=== PATIENT | female | born 1990 | race Caucasian/White ===

== ENCOUNTER 2023-12-02 09:02 | Outpatient (CLI) | payer OTHER, SELFPAY ==
--- NOTE | 2023-12-02 09:15 | US_ITS ---
Patient: COY MANSFIELD Facility:?[facility] Patient ID:?[id number] Site Patient ID:?[id number]. Site :?1990 Study:?US-OB Pelvis DATING AND VIABILITY-12/02/2023 9:36:31 AM Ordering Physician:CARITO REYNA Final Report: INDICATION: First trimester scan, establish dates. COMPARISON: None. TECHNIQUE: Real-time ureña-scale imaging of the pelvis was performed. FINDINGS: Sonographic imaging demonstrates a single living intrauterine gestation. The embryo demonstrates a regular cardiac rate measuring 169 beats per minute. The embryo`s crown-rump length measurement of 3.4 cm corresponds to a gestational age of 10 weeks 2 days with a sonographic due date of 06/27/2024. There is a normal-appearing yolk sac. There are no gross abnormalities noted within the embryo at this early state of development. The gestational sac has a normal appearance. There is no evidence of a perigestational hemorrhage. The amount of fluid within the sac appears appropriate for gestational age. The cervix is closed. The myometrium appears normal. The ovaries are of normal size. Corpus luteal cyst left ovary. There are no suspicious fluid collections noted in the cul-de-sac. IMPRESSION: Normal first trimester OB ultrasound exam. Gestational age calculated at 10 weeks 2 days with a sonographic due date of 06/27/2024. Dictated by Dilshad Sykes MD @ 12/02/2023 10:37:17 AM Signed by:?Dilshad Sykes MD @12/02/2023 10:37:17 AM (Electronic Signature)
== END 2023-12-02 09:03 | disposition home or self-care (01) ==
LOC: US 09:03
PROVIDERS: Visit Provider Advanced Practice Midwife
DX: Z34.91 Encounter for supervision of normal pregnancy, unspecified, first trimester (principal); Z3A.10 10 weeks gestation of pregnancy
CPT/HCPCS: 76801; 82565; 82570; 84156; 84450; 84460; 84550; 86703; 86706; 86803; 86850; 86900; 86901; 87086; 87340; 87491; 87591

== ENCOUNTER 2023-12-02 09:23 | Outpatient (CLI) | payer OTHER, SELFPAY | END 2023-12-02 09:24 | disposition home or self-care (01) | PROVIDERS: Visit Provider Advanced Practice Midwife | DX: Z34.91 Encounter for supervision of normal pregnancy, unspecified, first trimester (principal) | CPT/HCPCS: 82565; 82570; 84156; 84450; 84460; 84550; 86592; 86703; 86704; 86706; 86762; 86787; 86803; 86850; 86900; 86901; 87086; 87340; 87491; 87591 ==

== ENCOUNTER 2023-12-30 10:41 | Outpatient (CLI) | payer OTHER, SELFPAY | END 2023-12-30 10:42 | disposition home or self-care (01) | LOC: NFLDREF 10:48 | PROVIDERS: Visit Provider Advanced Practice Midwife | DX: Z34.91 Encounter for supervision of normal pregnancy, unspecified, first trimester (principal); Z3A.13 13 weeks gestation of pregnancy | CPT/HCPCS: 87086 ==

== ENCOUNTER 2024-01-05 14:21 | Outpatient (RCR) | payer OTHER, SELFPAY | END 2024-03-27 15:16 | disposition home or self-care (01) | PROVIDERS: Visit Provider Advanced Practice Midwife | DX: M62.89 Other specified disorders of muscle (principal); Z33.1 Pregnant state, incidental; R27.8 Other lack of coordination; R39.16 Straining to void; Z51.89 Encounter for other specified aftercare | CPT/HCPCS: 97161; 97535 ==

== ENCOUNTER 2024-02-16 09:10 | Outpatient (CLI) | payer OTHER, SELFPAY ==
--- NOTE | 2024-02-16 09:15 | US_ITS ---
Patient: COY MANSFIELD Facility:?[facility] Patient ID:?[id number] Site Patient ID:?[id number]. Site :?1990 Study:?US-OB Pelvis anatomy-02/16/2024 10:17:22 AM Ordering Physician:Lavonne Black Final Report: HISTORY: anatomic survey. COMPARISON: Early OB ultrasound from 12/02/2023. TECHNIQUE: Ultrasound examination of the is performed with transabdominal technique. FINDINGS: A single intrauterine gestation is seen in variable presentation with regular cardiac activity at 147 beats per minute. The placenta is posterior and is free of the cervical os. The placental grade is 0 and the amniotic fluid volume is normal. Single deepest vertical pocket: Normal at 3.5 cm. Placental cord insertion is eccentric, located 2.4 centimeters from the superior placental margin. The cervix is nondilated and measures 4.7 centimeters, normal length. BPD: 4.6 cm 19 weeks 6 days HC: 17.3 cm 19 weeks 6 days AC: 15.8 cm 20 weeks 6 days FL: 3.4 cm 20 weeks 5 days The estimated age by ultrasound is 20 weeks 5 days, with an estimated date of delivery of 06/30/2024. This correlates well with the clinical age of 20 weeks 5 days and the previous ultrasound. The ultrasound ratios are normal. The estimated weight of 150 grams is at the 43rd percentile based on the clinical dates. The anatomic survey demonstrates normal appearing intracranial structures with a normal septum pellucidum and normal cerebellum. The nuchal thickness is normal at 4 mm, and the lateral ventricle is normal in diameter at 5 mm. The upper lip, 4 chamber heart, left and right ventricular outflow tracts, diaphragm, stomach, cord insertion site, 3-vessel cord, bladder and spine are normal in appearance. There is mild fullness of the renal pelves bilaterally, 4 millimeters on the right and 5 millimeters on the left, within normal limits. IMPRESSION: 1. Single intrauterine gestation in variable presentation with regular cardiac activity. 2. Estimated gestational age is 20 weeks 5 days. 3. There has been appropriate interval growth. 4. The estimated weight of 150 grams is at the 43rd percentile based on the clinical dates. Dictated by Boone Harris MD @ 02/17/2024 10:52:30 AM Signed by:?Boone Harris MD @02/17/2024 10:52:30 AM (Electronic Signature)
== END 2024-02-16 09:11 | disposition home or self-care (01) ==
LOC: US 09:11
PROVIDERS: Visit Provider Advanced Practice Midwife
DX: Z34.92 Encounter for supervision of normal pregnancy, unspecified, second trimester (principal); Z3A.19 19 weeks gestation of pregnancy
CPT/HCPCS: 76805

== ENCOUNTER 2024-04-05 09:18 | Outpatient (CLI) | payer OTHER, SELFPAY | END 2024-04-05 09:19 | disposition home or self-care (01) | LOC: NFLDREF 04-07 18:40 | PROVIDERS: Visit Provider Advanced Practice Midwife | DX: Z34.93 Encounter for supervision of normal pregnancy, unspecified, third trimester (principal) | CPT/HCPCS: 86592 ==

== ENCOUNTER 2024-06-02 09:30 | Outpatient (CLI) | payer OTHER, SELFPAY ==
[2024-06-03 12:10] LABS: Strep B DNA Probe Negative (Negative)
[2024-06-03 12:40] LABS: Strep B Susceptibility Needed? No
== END 2024-06-02 09:31 | disposition home or self-care (01) ==
PROVIDERS: Visit Provider Midwife
DX: Z34.93 Encounter for supervision of normal pregnancy, unspecified, third trimester (principal)
CPT/HCPCS: 87081; 87653

== ENCOUNTER 2024-06-26 14:20 | Inpatient (IN) | payer OTHER, SELFPAY ==
[2024-06-26] VITALS (10 sets, daily range): BP systolic 118–132; BP diastolic 80–83; PULSE 103–112; RESP 15; TEMP 36.4–37.1; BMI 36.0
[2024-06-26 13:57] LABS: Amnisure Rom* POSITIVE
--- NOTE | 2024-06-26 15:50 | P.LDBA_ITS ---
Subjective History of Present Illness Date Seen: 06/26/24 Narrative: Roselyn is being admitted to Labor and Delivery for PROM with moderate amount of clear fluid. She is a 34 year old at 39.3 weeks gestation. Her full history and physical was dictated by Red Dalton CNM on 06/09/24. Please see this for details. Roselyn has been esther minimally since ROM. We discussed options for continuing labor including expectant management or Pitocin augmentation. She strongly desires to avoid any interventions or medications and opts for expectant management. We discussed the risks and benefits of expectant management. Will plan to minimize SVE and she declines at this time. We discuss ed we will plan to reevaluate the need for augmentation in 8-12 hours or sooner as needed. She is agreeable to this plan. Encouraged her to rest if able and discussed ambulation and labor warmup circuit. Specific Issues/Plans Maurizio Unknown gender. 15yo and 2 yo girls at home. H&P completed 06/09/2024 by Aleena JEWELL 1. Hx Preeclampsia last baby baseline Pree labs ordered at [facility] 2. Hx Uterine inversion with first child (15 yrs ago) no issue with last delivery 3. Hx situational Depression with anxiety years ago, no meds did therapy 4. Difficulty urinating, RESOLVED pelvic floor PT referral UA/UC- neg 5.Prominent renal pelvis on anatomy ultrasound, but measurements within normal limits. .4 cm on the right and 0.5 cm on the left OB - Problem Based A/P Additional Plan (1) PROM (premature rupture of membranes): Status: Acute (2) 39 weeks gestation of : Status: Acute Plan ASSESSMENT:? at 39.3 weeks gestation? GBS negative? Uncomplicated . History of preeclampsia and uterine inversion. PROM Blood type:?AB+ ?? PLAN:? 1. Reviewed risks and benefits of augmentation with Pitocin vs expectant management. Pt prefers expectant management. Will reevaluate need for augmentation in 8-12 hours.? 2. Desires water . Consent signed. Hep C negative.? 3. Candidate for analgesia of choice. Planning unmedicated .? 4. Anticipate ? 5. Expectant management at this time.? 6. IV placement criteria not met at this time. Consider placement if patient condition changes. 7. Intermittent auscultation after reactive tracing is obtained. Delivery/Labor/Induction Plan Plan: expectant management OB Result Labs Blood Type: AB (+) positive GBS Status: negative OB Exam Physical Exam Vital signs: Temp Pulse BP 97.9 F 109 H 123/80 06/26/24 15:45 06/26/24 13:47 06/26/24 13:47 Narrative: Psychiatric:? Alert and oriented x3? HEENT:? Normocephalic, atraumatic? Neck:? Supple without adenopathy or thyromegaly? Lungs:? Clear to auscultation bilaterally? Heart:? Regular rate and rhythm, no murmur, rub or gallop? Abdomen:? Soft, nontender, and gravid? Extremities:? No edema or erythema? Detailed Labor and Delivery Exam Patient Gravid: Yes Comments: Declines SVE at this time. Fetus (Single) Amniotic Membrane Status: SROM Amniotic Membrane Fluid Description: Clear Heart Rate Baseline: 125 Monitor Accelerations: Present Monitor Decelerations: None Account Developer Variability: Moderate (6-25)
--- NOTE | 2024-06-26 20:35 | PM.OBPNL ---
Subjective Time Seen by Provider: 20:35 Date Seen: 06/26/24 Narrative: Roselyn has been working on position changes and labor circuits to help start labor. She recently started pumping and her contractions have picked up to every 10-15 per her report but she feels they are getting more painful. Doppler continues to be reassuring with FHR heard in the 140's without decreases. She continues to leak clear fluid. We discussed options for continuing labor. She would like to wait on a SVE and Pitocin augmentation at this time and continue pumping. She is agreeable to evaluating at 0000 and will consider Pitocin at that time if her contraction have not continued to increase in frequency and intensity. We discussed in depth risks and benefits of Pitocin and what augmentation looks like in relation to an unmedicated labor and . Objective Vital Signs: Last Vital Signs Temp 97.6 F 06/26/24 18:20 Pulse 109 H 06/26/24 13:47 BP 123/80 06/26/24 13:47 Contractions Monitor mode: Palpation Contraction Frequency: 10-15 min Contraction pattern: Irregular Assessment Assessment: early labor Heart Rate Baseline: 140 (increases heard by doppler) Monitor Decelerations: None Plan Plan: ASSESSMENT:? at 39.3 weeks gestation? GBS negative? Uncomplicated . History of preeclampsia and uterine inversion. PROM Blood type:?AB+ ?? PLAN:? 1. Reviewed risks and benefits of augmentation with Pitocin vs expectant management. Pt prefers to continue with expectant management at this time. Open to reevaluate need for augmentation around 0000. 2. Desires water . Consent signed. Hep C negative.? 3. Candidate for analgesia of choice. Planning unmedicated .? 4. Anticipate ? 5. Expectant management at this time.? 6. IV placement criteria not met at this time. Consider placement if patient condition changes. 7. Continue with Intermittent auscultation unless conditions change or concerns arise.
[2024-06-27] VITALS (16 sets, daily range): BP systolic 108–136; BP diastolic 58–81; PULSE 79–122; RESP 16; TEMP 36.4–36.8; O2SAT 97
--- NOTE | 2024-06-27 02:39 | W.PM.VAGDE_ITS ---
OB Procedure Vag Delivery Mother Details Mother Details: The patient is a 34 year-old, 3, Para 2, admitted on 06/26/24 at Days gestation. : 3 Para: 3 Weeks Gestation: 39.4 Admission Date: 06/26/24 Additional Details Amniotic Membrane Status: SROM Amniotic Membrane Rupture Date: 06/26/24 Amniotic Membrane Rupture Time: 12:00 Amniotic Membrane Fluid Description: Clear Analgesia/Anesthesia Type: None Waterbirth: Yes Pitcoin: No Intrapartal Events: None Labor Onset: 21:00 Complete: 01:48 (assumed complete with spontaneous pushing) Pushin:48 Heart: heart tones during second stage by doppler were 120-140 with increases heard. Occasional small decreases were heard with pushing to 110 lasting less than 5 seconds with quick return to baseline. Delivery Details Delivery Date: 06/27/24 Delivery Time: 02:18 Route of delivery: Infant Gender: Female Infant Viability: Alive; Heart Rate Present Position at Delivery: OA Delivery Details: Patient was admitted for PROM and progressed normally with position changes and pumping. SROM noted at 1200 with clear fluid. Patient was presumed complete with pushing at 0148. of a viable female at 0218 in left tilt in the tub. Vertex delivered OA. No nuchal cord or shoulder. Body delivered easily and without incident. Infant passed to mothers abdomen with a vigorous cry. Cord was clamped and cut at about 3 minutes due to a large gush of blood in the tub. She was rapi dly escorted to the bed to deliver the placenta. APGARS were 9 at one minute and 9 at five minutes respectively. Mouth was bulb suctioned. Intact placenta with a 3 vessel cord delivered spontaneously at 0228. Fundus firm. Intact perineum was identified and no repaired was required. QBL 50 mL in the drape and EBL 500 mL in the tub. Mother and baby stable; mother plans to breastfeed. weight 8 lb 5oz.? 1 Minute Interval Total Score: 9 5 Minute Interval Total Score: 9 Additional Details Shoulder Dystocia: No Placenta Delivery Time: 02:28 Placental Delivery Description: Spontaneous Procedure Done: Global Blood Loss: 550 Laceration: None Episiotomy Description: None Blood Loss Measurement Type: QBL (50mL QBL in the drape and 500mL EBL in the tub) Bakri Used: No Sponge/Need Count Correct: Yes Cord Vessel Description: 3 Vessels Event Summary Status: Mother and were stable after delivery. Disposition: floor
[2024-06-28 00:54] VITALS: BP 116/71; PULSE 74; RESP 16; TEMP 36.4; O2SAT 95
[2024-06-28 04:37] VITALS: BP 115/75; PULSE 88; RESP 16; TEMP 36.4; O2SAT 97
[2024-06-28 06:46] LABS: Hemoglobin* 12.3 gm/dL (12.0-16.0)
[2024-06-28 08:00] VITALS: BP 118/77; PULSE 72; RESP 16; TEMP 36.4; O2SAT 96
--- NOTE | 2024-06-28 11:12 | PM.OBDSVD1 ---
DS: Providers Provider Date Seen: 06/28/24 Date of admission: 06/26/24 14:20 Primary care physician: Not a Local Provider Admitting Clinician: Jessy Blackburn CNM Attending Physician on discharge: Jenny Weinstein CNM DS: Diagnosis Discharge Diagnosis (1) care and examination immediately after delivery: Status: Acute (2) Lactating mother: Status: Acute Exam Narrative: Exam Narrative: GENERAL APPEARANCE:? normal affect, alert, no distress MOOD:? appropriate CHEST:? clear to auscultation HEART:? regular rate and rhythm ABDOMEN:? soft, non-tender the uterine fundus is at Umbilicus, Midline and is appropriate for the stage of recovery. PERINEUM:? mild edema of the perineum. EXTREMITIES:? normal and no edema Const: Vital Signs, click to edit/add: Vital Signs - 24 hr 06/27/24 12:06 06/27/24 12:06 06/27/24 12:11 Temperature 98.2 F Pulse Rate 90 Pulse Rate [Blood Pressure Cuff] 90 Respiratory Rate 16 Blood Pressure 124/65 Blood Pressure [Ri ght Arm] 124/65 Pulse Oximetry Oxygen Delivery Me thod Room Air 06/27/24 16:12 06/27/24 19:28 06/28/24 00:54 Temperature 98.1 F 97.7 F 97.5 F L Pulse Rate Pulse Rate [Blood Pressure Cuff] 79 86 74 Respiratory Rate 16 16 16 Blood Pressure Blood Pressure [Ri ght Arm] 108/67 112/69 116/71 Pulse Oximetry 97 95 Oxygen Delivery Me thod Room Air Room Air 06/28/24 04:37 06/28/24 08:00 Temperature 97.6 F 97.5 F L Pulse Rate Pulse Rate [Blood Pressure Cuff] 88 72 Respiratory Rate 16 16 Blood Pressure Blood Pressure [Ri ght Arm] 115/75 118/77 Pulse Oximetry 97 96 Oxygen Delivery Me thod Room Air Room Air Documenting provider has reviewed patient's vital signs: yes OB - DS: Summary Hospital Course Hospital Course: Roselyn is a 34 y.o. G 3 P 3 who was admitted to [facility] for spontaneous onset of labor. ?She had a NVD that was uncomplicated. The patient feels well. ?The pain is well controlled with current medications. ?She has no new complaints. ?She is breast feeding and reports things are going well. the patient has done well.? Vitals have been stable.? She has remained afebrile.? Has a good appetite, is tolerating a general diet. ?She is voiding without difficulty.? She is passing gas and has had a bowel movement.? She is ambulating and denies any dizziness.? Has small amount of rubra lochia. She is planning condoms until her has a vasectomy for prevention. Problems: plan: Discharge home with baby. Follow up in 2 weeks and 6 weeks. , may see if needed Hgb 12.3. Peripartum Data delivery method: Vaginal Laceration description: None complications: none Gender: Female Discharge Plan: Home Status at Discharge Functional status at discharge: independent ambulation Overall status at discharge: patient is progressing back to baseline Time Spent with Patient Time attestation: Total time spent providing and/or coordinating discharge services: Time spent: Less than 30 minutes Discharge Plan Discharge Disposition: Home, Self-Care Date of Admission: 06/26/24 14:20 Attending Provider on Discharge: Jenny Weinstein Primary Care Provider: Provider,Not a Local Condition: Stable Anticipated Discharge Date/Time: 06/28/24 12:00 Discharge Medications: New acetaminophen 500 mg Tablet 1,000 mg PO Q6H PRNQty: 0 0RF docusate sodium 100 mg Capsule 100 mg PO DAILY Qty: 90 0RF ibuprofen 600 mg Tablet 600 mg PO Q6H PRNQty: 60 0RF Continued magnesium glycinate 100 mg tablet 100 mg PO QDAY PNV #[id number] 30 mg iron-10 mg iron-1 mg capsule PO cholecalciferol (vitamin D3) 125 mcg (5,000 unit) capsule 125 mcg PO QDAY Culturelle Probiotic 12 billion cell tablet,chewable PO omega-3 fatty acids 1,250 mg capsule 1,250 mg PO QDAY Discontinued aspirin 81 mg tablet,delayed release (DR/EC) 81 mg PO QDAY Discharge Orders: Discharge Order (Routine); Ordered 06/28/24 Ordered By: Jenny Weinstein Patient Education: OB Over the Counter Medication Information, OB Vaginal/Breast Feeding Additional Instructions: Discharge instructions were reviewed with the patient including signs and symptoms of infection and home going medications Nothing vaginally for 6 weeks: no tampons or intercourse Off Work or School for 6 weeks 2-week visit: discuss infant feeding concerns, review control options and screen for anxiety/depression. 6-week visit for an annual exam. consultation services are available to all mothers and babies for the first year after delivery.? To make an appointment, please call [phone]. Activity Level: Activity as Tolerated Discharge Diet: Regular Follow Up Appointments: Provider,Not a Local [Primary Care Provider] - Forms: [employer] Info Instructions
[2024-06-30 00:45] LABS: Rapid Plasma Reagin (RPR) Non Reactive (Non Reactive)
== END 2024-06-28 11:38 | disposition home or self-care (01) | DRG 807 ==
LOC: OB OUT 14:20 → OB 14:20
PROVIDERS: Admitting Provider Advanced Practice Midwife; Visit Provider Advanced Practice Midwife
DX: O42.02 Full-term premature rupture of membranes, onset of labor within 24 hours of rupture (principal); Z37.0 Single live birth; Z3A.39 39 weeks gestation of pregnancy
CPT/HCPCS: 36415; 84112; 85018; 86592

== ENCOUNTER 2024-06-30 09:28 | Outpatient (CLI) | payer OTHER, SELFPAY ==
--- NOTE | 2024-06-30 10:23 | P.LACCB_ITS ---
Consult Note - Mom Date of Visit Date of visit: 06/30/24 Reason for consultation: Assistance Needed and Infant Weight Concern Visit Code: Visit Patient's Information Phone number: [phone] : 3 Para: 3 Allergies No Known Drug Allergies Allergy (Verified 06/26/24 13:55) Mother's Medical History: Medical History (Updated 06/28/24 @ 11:13 by Jenny Weinstein CNM) Difficulty urinating ?R39.198 - Other difficulties with micturition (ICD-10) History of abnormal cervical Pap smear (2017) ?Z87.42 - Personal history of other diseases of the female genital tract (ICD-10) History of pre-eclampsia (2021) ?Z87.59 - Personal history of other complications of , childbirth and the puerperium (ICD-10) Anxiety with depression ?F41.8 - Other specified anxiety disorders (ICD-10) History of uterine inversion (10/04/08) ?Z87.42 - Personal history of other diseases of the female genital tract (ICD-10) Normal spontaneous vaginal delivery ?O80 - Encounter for full-term uncomplicated delivery (ICD-10) Work Plans: Return to work fulltime Oct 2024 Delivery Information Delivery type: Vaginal Gestational Age: 30+4 Gestational Weight For Age: AGA Weight: 3.78 kg Discharge Weight: 3.546 kg Percentage weight loss: 6.2 Baby's Information Baby's Age at Visit: 3 days Baby's Provider or Clinic: [facility] Jaundice: No Past Experience Past Experience: Yes (none with 1st child, 6 mos with 2nd child) Current Frequency of Day Feedings: every 2hours, mom needs to wake baby for feedings Frequency of Night Feedings: every 2 hours Both Breasts: Yes Suck: strong, comfortable Latch: wide, deep Length of Time: about 10 min ea side Goals: 1 year Pumping Pumping: No Supplementing Formula Supplement: Yes (3 times on day of discharge, none since milk came in) Baby Elimination Number of Wet Diapers a Day: 3-4 yesterday Number of BM a Day: 1 BM early this AM, brown in color Breast/Nipple Condition Breast Information: Breasts are symmetrical with rounded lower quadrants, intramammary distance is less than 1.5 inches. No erythema. Nipples are supple, everted prior to feeding. Breast Shape: Round Engorgement: No Maternal Nipple Condition - Left: Common Nipple Maternal Nipple Condition - Right: Common Nipple Sore Nipples: No Interventions for Sore Nipples: Lansinoh/Nipple Cream Baby Assessment Skin: Normal Tongue/frenulum: Normal/elastic Palate: Average Lips: Relaxed and Symmetrical Jaw Alignment: Symmetrical Mucosa: [place], moist Onsite Observation Pre-Feed weight: 3.512 kg Post-Feed weight: 3.556 kg Milk Transferred (mL): 44 (15 min on left, 5 min on right) Position: Cross cradle Suck pattern: Suck burst and normal rest Swallow: Audible, consistent Behavior following feed: Relaxed, sleepy Pre-Nursing Left Nipple: Within Normal Limits Pre-Nursing Right Nipple: Within Normal Limits Post-Nursing Left Nipple: Within Normal Limits Post-Nursing Right Nipple: Within Normal Limits Assessments/Interventions Assessments/Interventions: Babe with improved weight, going well Discussed pumping around 2-3 weeks to build freezer supply in preparation for mom to return to work Discussed adding in bottles around 3-4 weeks, also in preparation for mom to return to work Education provided: Early feeding cues to maximize timing of latching, Supply/d emand nature of milk supply, Need for frequent stimulation/milk removal, Pumping for milk management and Milk collection, storage Feeding Plan: Continue feeding every 2-3 hours, think 2 hours during the day and 3 hours at night if baby sleeps Can go longer at night once baby back to birthweight; also ok to wake baby for feeding if needed for milk removal to keep breasts comfortable Follow-Up Suggested follow up: Appointment as needed Time Spent Time spent with patient (min): 60 (Time spent reviewing EMR and face to face with mom/baby) Meds Home Medications and Allergies Home Medications ?Medication ?Instructions ?Recorded ?Confirmed ?Type L. crispatus, gasseri, jensenii, tab PO 12/02/23 06/23/24 History rhamnosus 12 billion cell chew tablet (Culturelle Probiotic) cholecalciferol (vitamin D3) 125 125 mcg PO QDAY 12/02/23 06/26/24 History mcg (5,000 unit) capsule magnesium glycinate 100 mg (as 100 mg PO QDAY 12/02/23 06/26/24 History glycinate) tablet omega-3 fatty acids 1,250 mg 1,250 mg PO QDAY 12/02/23 06/26/24 History capsule vitamin#30 30 mg iron-10 cap PO 12/02/23 06/23/24 History mg iron-folic acid 1 mg-omg3 capsule Allergies Allergy/AdvReac Type Severity Reaction Status Date / Time No Known Drug Allergies Allergy Verified 06/26/24 13:55
== END 2024-06-30 09:29 | disposition home or self-care (01) ==
LOC: OB LAC 09:29
PROVIDERS: Visit Provider Obstetrics & Gynecology
DX: Z39.1 Encounter for care and examination of lactating mother (principal)
CPT/HCPCS: G0463

== ENCOUNTER 2025-04-05 09:33 | Outpatient (CLI) | payer OTHER, SELFPAY | END 2025-04-05 09:34 | disposition home or self-care (01) | PROVIDERS: PCP Nurse Practitioner Family; Visit Provider Nurse Practitioner Family | DX: E16.2 Hypoglycemia, unspecified (principal); Z13.6 Encounter for screening for cardiovascular disorders | CPT/HCPCS: 80061; 84681 ==